=== PATIENT | female | born 1935 | race Caucasian/White ===

== ENCOUNTER → 2016-04-11 | Outpatient (CLI) | payer MEDICARE, OTHER ==
[2016-04-11 08:38] LABS: BASOPHILS % (AUTO) 0 % (0-2); EOSINOPHILS # (AUTO) 0.1 10^3uL; EOSINOPHILS % (AUTO) 2 % (0-4); LYMPHOCYTES # (AUTO) 2.5 X10^3; MEAN CORPUSCULAR HEMOGLOBIN 31.2 PG (26.0-34.0); MEAN CORPUSCULAR VOLUME 92 FL (80-100); MEAN PLATELET VOLUME 8.8 FL (6.0-9.5); MONOCYTES # (AUTO) 1.1 X10^3; MONOCYTES % (AUTO) 13 % (3-11); NEUTROPHILS # (AUTO) 4.6 X10^3; NEUTROPHILS % (AUTO) 55 % (51-67); PLATELET COUNT 215 10^3uL (150-450); WHITE BLOOD COUNT 8.31 10^3uL (4.0-11.0)
[2016-04-11 09:11] LABS: ERYTHROCYTE SEDIMENTATION RT* 36 mm/hr (0-23)
[2016-04-11 09:22] LABS: ALBUMIN 3.7 g/dL (3.4-5.0); ANION GAP 12.9 MEQ/L (3-15); CALCULATED IONIZED CALCIUM 4.2 mg/dL (3.8-4.6); TOTAL PROTEIN 6.7 g/dL (6.4-8.5)
== END ==
LOC: RAD 08:23
PROVIDERS: ATTEND Family Medicine
DX: J45.20 Mild intermittent asthma, uncomplicated (principal); M06.9 Rheumatoid arthritis, unspecified
CPT/HCPCS: 36415; 71020; 80053; 85025; 85652; 86140